=== PATIENT | male | born 1955 | race Caucasian/White ===

== ENCOUNTER 2018-04-28 10:15 | Outpatient (CLI) | payer OTHER | END 2018-04-28 10:16 | disposition home or self-care (01) | LOC: BICMRI 10:15 | PROVIDERS: ATTEND Family Medicine | DX: S43.91XD Sprain of unspecified parts of right shoulder girdle, subsequent encounter (principal); M75.41 Impingement syndrome of right shoulder; M25.411 Effusion, right shoulder; M19.011 Primary osteoarthritis, right shoulder; S46.011D Strain of muscle(s) and tendon(s) of the rotator cuff of right shoulder, subsequent encounter ==

== ENCOUNTER 2022-12-19 13:25 | Outpatient (CLI) | payer MEDICARE | END 2022-12-19 13:26 | disposition home or self-care (01) | LOC: BICRAD 13:25 | PROVIDERS: ATTEND Family Medicine | DX: R06.02 Shortness of breath (principal); M47.814 Spondylosis without myelopathy or radiculopathy, thoracic region | CPT/HCPCS: 36415; 71046; 80053; 83880; 85025; 85379 ==

== ENCOUNTER 2023-01-10 11:02 | Outpatient (CLI) | payer MEDICARE | END 2023-01-10 11:03 | disposition home or self-care (01) | LOC: BICRAD 11:02 | PROVIDERS: ATTEND Family Medicine | DX: J40 Bronchitis, not specified as acute or chronic (principal) | CPT/HCPCS: 71046 ==